=== PATIENT | female | born 1945 | race African-American/Black ===

== ENCOUNTER 2019-08-25 14:19 | Emergency (ER) | payer MEDICARE, OTHER ==
--- NOTE | 2019-08-25 14:27 | PDOC ---
History of Present Illness - General Chief Complaint: Pain Stated Complaint: RIGHT HIP PAIN FOR 1 WEEK Time Seen by Provider: 08/25/19 14:22 Past History - Past Medical History Allergies/Adverse Reactions: Allergies Allergy/AdvReac Type Severity Reaction Status Date / Time morphine Allergy Mild Verified 08/25/19 14:21 Penicillins Allergy Mild Verified 08/25/19 14:21 Home Medications: Ambulatory Orders Calcium/Magnesium [Calcium and Magnesium Tab] 1 tab PO DAILY 08/04/13 Valsartan/Hydrochlorothiazide [Diovan Hct 160-12.5 mg Tablet] 1 combo PO DAILY 08/04/13 Travoprost (Benzalkonium) [Travatan 0.004% Eye Drop] 1 drop OU HS 03/13/15 Cyclobenzaprine HCl [Flexeril -] 10 mg PO TID #9 tablet 08/25/19 Ibuprofen [Motrin -] 400 mg PO Q6H PRN #15 tablet 08/25/19 Timolol 0.5% [Timoptic 0.5%] 1 drop OU BID 08/25/19 HTN: Yes - Psycho Social/Smoking Cessation Hx Smoking History: Never smoked Have you smoked in the past 12 months: No Number of Cigarettes Smoked Daily: 0 Hx Alcohol Use: No Drug/Substance Use Hx: No Substance Use Type: None Review of Systems - Review of Systems Constitutional: No: Chills, Fever HEENTM: No: Eye Pain, Blurred Vision Respiratory: No: Cough, Shortness of Breath Cardiac (ROS): No: Chest Pain, Irregular Heart Rate ABD/GI: No: Nausea, Vomiting : No: Burning, Dysuria Musculoskeletal: Yes: Back Pain, Joint Pain Integumentary: No: Bruising, Change in Color Neurological: No: Headache, Numbness *Physical Exam - Physical Exam 08/25/19 15:15 GENERAL: Awake, alert, and fully oriented, in no acute distress HEAD: No signs of trauma, normocephalic, atraumatic EYES: PERRLA, EOMI, sclera anicteric, conjunctiva clear ENT: Auricles normal inspection, hearing grossly normal, nares patent, oropharynx clear without exudates. Moist mucosa NECK: Normal ROM, supple, no lymphadenopathy, JVD, or masses LUNGS: No distress, speaks full sentences, clear to auscultation bilaterally HEART: Regular rate and rhythm, normal S1 and S2, no murmurs, rubs or gallops, peripheral pulses normal and equal bilaterally. ABDOMEN: Soft, nontender, normoactive bowel sounds. No guarding, no rebound. No masses EXTREMITIES : Normal inspection, Normal range of motion, no edema. No clubbing or cyanosis. no pain with internal and external rotation of hip. Back: no spinal tenderness, deformities, erythema. tenderness to palpation of right lower back. NEUROLOGICAL: Cranial nerves II through XII grossly intact. Normal speech, normal gait, no focal sensorimotor deficits SKIN: Warm, Dry, normal turgor, no rashes or lesions noted Medical Decision Making - Medical Decision Making 08/25/19 15:10 73 Y/O f HX OF htn, glaucoma, presents to the ED with lower right back/hip pain fo 1wk duration denies trauma, falls at time of onset -able to articulate hip without pain on adduction and abduction no spinal tenderness no obvious deformities/swelling/erythema/rash on back pt discharged with motrin and flexerail pcp follow up Discharge - Discharge Information Problems reviewed: Yes Clinical Impression/Diagnosis: Lower back pain Qualifiers: Chronicity: acute Back pain laterality: right Sciatica presence: without sciatica Qualified Code(s): M54.5 - Low back pain Condition: Stable Disposition: HOME - Admission No - Additional Discharge Information Prescriptions: Cyclobenzaprine HCl [Flexeril -] 10 mg PO TID #9 tablet Ibuprofen [Motrin -] 400 mg PO Q6H PRN #15 tablet PRN Reason: Back Pain - Follow up/Referral Referrals: Linda Baez [Primary Care Provider] - - Patient Discharge Instructions Patient Printed Discharge Instructions: DI for Low Back Pain - Post Discharge Activity
--- NOTE | 2019-08-25 14:31 | PDOC ---
Attending Attestation - Resident Resident Name: Teresa Rivers - ED Attending Attestation I have performed the following: I have examined & evaluated the patient, The case was reviewed & discussed with the resident, I agree w/resident's findings & plan, Exceptions are as noted - HPI HPI: 08/25/19 15:30 Right low back pain for several days. Worse with recumbency, movement of the torso. No increased pain with weightbearing or ambulation. No distal numbness tingling pain or weakness in the lower extremities. No lisa trauma. - Physicial Exam PE: 08/25/19 15:31 Physical exam: Well-developed well-nourished no acute distress cheerful and cooperative Afebrile, vital signs normal LS spine with normal lumbar lordosis preserved. No point tenderness or deformity. No visible or palpable sign of inflammation. Straight leg raising negative. No distal sensory or motor deficits. Extremities: Full range of motion of both hips in internal and external rotation without limitation and without pain. - Medical Decision Making 08/25/19 15:32 Assessment: Minor low back strain Plan: Rest, avoid sitting, symptomatic treatment and follow-up if no improvement. Fully ambulatory, without pain or other distress at discharge to follow-up as directed
[2019-08-25 14:39] VITALS: BP 152/88; PULSE 88; TEMP 97.7; BMI 25.8
== END 2019-08-25 15:14 | disposition home or self-care (01) ==
LOC: FER 14:19
DX: M54.5 Low back pain (principal); Z88.0 Allergy status to penicillin; Z88.6 Allergy status to analgesic agent; I10 Essential (primary) hypertension; H40.9 Unspecified glaucoma
CPT/HCPCS: 99282-25